=== PATIENT | male | born 1955 | race Caucasian/White ===

== ENCOUNTER → 2016-10-31 | Day surgery (SDC) | payer OTHER ==
[~2016-10-31] VITALS: Ht 175.3 cm; Wt 75.0 kg
[~2016-10-31] MED LIST: 0.9% Sodium Chloride 1,000 ML IV SCH; AMLO5TAB2 PO; ASPI-973 PO; CALC-1034 PO; LIP40 PO; LOSA100T29 PO; Sodium Chloride LOK Flush 10 mL Syringe IV PRN; TADA10TA PO; fentaNYL-PF 50 mCg/mL 2 mL Inj IVPUSH PRN
[2016-10-31 07:36] VITALS: BP 133/86; PULSE 84; RESP 16; O2SAT 97
[2016-10-31 08:24] VITALS: BP 102/73; PULSE 72; RESP 16; O2SAT 97
[2016-10-31 08:35] VITALS: BP 95/63; PULSE 69; RESP 16; O2SAT 94
[2016-10-31 08:39] VITALS: BP 112/69; PULSE 73; RESP 16; O2SAT 97
--- NOTE | 2016-10-31 09:12 | ENDO ---
[address] [address] ENDOSCOPY PROCEDURE PATIENT: ROXANA PATEL : 1955 MR#: [id number] ADMIT: 10/31/2016 JOB ID: [id number] DATE: 10/31/2016 PRIMARY PROVIDER: NELSY Lim PROCEDURE: Colonoscopy. INDICATIONS: A 61-year-old male with a history of colon polyp, returning for surveillance. EQUIPMENT: PCOyokey-H180-AL. SEDATION: 8 mg Versed, 150 mcg fentanyl. COMPLICATIONS: None identified. BOWEL PREPARATION: Very adequate. PROCEDURE INFORMATION: After the risks and benefits were explained, written and verbal informed consent was obtained. The patient was brought into the endoscopy suite and placed into the left lateral decubitus position. Sedation was achieved as above. A digital rectal examination was accomplished. No significant pathology apart from some mild internal hemorrhoids noted. The scope was introduced into the rectum and advanced under direct visualization to the level of the cecum, as identified by the appendiceal orifice and ileocecal valve. The scope was slowly withdrawn to carefully examine the mucosa for any defects or lesions. Multiple direct views were made through the dentate line for exclusion of pathology. The colon was decompressed, the scope removed from the patient who tolerated the procedure well. FINDINGS: No significant polyps, mass lesions, or inflammatory features identified throughout. ENDOSCOPIC DIAGNOSES: 1. Mild internal hemorrhoids. 2. Otherwise visually unremarkable colonoscopy to cecum. RECOMMENDATIONS: Repeat colonoscopy in five years considering personal history of colon polyp.
== END | disposition home or self-care (01) ==
LOC: END 00:18
PROVIDERS: ATTEND Internal Medicine Gastroenterology
DX: Z12.11 Encounter for screening for malignant neoplasm of colon (principal); Z86.010 Personal history of colon polyps; K64.8 Other hemorrhoids; I10 Essential (primary) hypertension; E78.5 Hyperlipidemia, unspecified; R73.03 Prediabetes; Z79.82 Long term (current) use of aspirin
CPT/HCPCS: 99153; G0105; G0500; J2250; J3010; J7030